=== PATIENT | female | born 1990 | race African-American/Black ===

== ENCOUNTER 2019-01-01 04:44 | Emergency (ER) | payer OTHER ==
[~2019-01-01] VITALS: Wt 78.5 kg
[2019-01-01 05:00] VITALS: BP 131/85; PULSE 91; RESP 16
--- NOTE | 2019-01-01 05:15 | ERD ---
ER Documentation Chief Complaint Chief Complaint vaginal pressure like pain x 2 days HPI This is a 28-year-old female who presents emergency department with complaints of vaginal pain 2 days. Sexually active with one partner only. Partner has no symptoms. Last sexual activity was 2 days ago. No dyspareunia. LMP: 4 years ago. Has a partial hysterectomy. Denies headache, head injury, loss of consciousness, dizziness, neck pain, neck stiffness, throat pain, difficulty swallowing, difficulty breathing lying flat, shoulder pain, chest pain, back pain, abdominal pain, nausea, vomiting, constipation, diarrhea, or possibility being , loss of bowel and bladder control, trauma, injury, falls, difficulty walking due to pain, numbness or tingling sensation, calf pain, recent travel, recent major surgery i n the last 3 weeks, calf pain, recent long travel, recent exposure to any illness, recent antibiotic use in the last 3 months, fever, chills, seizures. Past medical history: Surgical history: Partial hysterectomy. x2. Left ovary cyst. Social: Denies smoking, use of alcoholic beverages, use of illegal drugs. ROS All systems reviewed and are negative except as per history of present illness. Medications Home Meds Active Scripts Phenazopyridine Hcl* (Pyridium*) 200 Mg Tab, 200 MG PO TID PRN for URINARY PAIN, #6 TAB Prov:PASILABAN,KLAR F 01/01/19 Ibuprofen* (Motrin*) 800 Mg Tab, 800 MG PO Q6H PRN for PAIN AND OR ELEVATED TEMP, #30 TAB Prov:PASILABAN,KLAR F 01/01/19 Cephalexin* (Keflex*) 500 Mg Capsule, 500 MG PO TID for 7 Days, CAP Prov:PASILABAN,KLAR F 01/01/19 Allergies Allergies: Coded Allergies: No Known Drug Allergies (Verified Allergy, Unknown, 02/01/15) PMhx/Soc Medical and Surgical Hx: pt denies Medical Hx History of Surgery: Yes (foot surgery, hysterectomy and cyst remove from ovary ) Anesthesia Reaction: No Hx Miscellaneous Medical Probl: Yes (LT OVARY CYST ) Hx Alcohol Use: No Hx Substance Use: Yes (marijuana ) Hx Tobacco Use: No Smoking Status: Never smoker Physical Exam Vitals Vital Signs Date Temp Pulse Resp B/P (MAP) Pulse Ox O2 O2 Flow FiO2 Time Delivery Rate 01/01/19 97.6 91 16 131/85 98 05:00 (100) Physical Exam Const: No acute distress Head: Atraumatic Eyes: Normal Conjunctiva ENT: Normal External Ears, Nose and Mouth. Neck: Full range of motion. No meningismus. Resp: Clear to auscultation bilaterally Cardio: Regular rate and rhythm, no murmurs Abd: Soft, non tender, non distended. Normal bowel sounds. Negative Doe sign. Negative [place] sign (heel jar). Negative psoas sign. Negative Rovsing sign. No CVA tenderness. Ambulatory with steady gait and without pain to lower abdomen. Skin: No petechiae or rashes. Color appears normal for ethnicity. No skin pain. No signs of severe dehydration. Back: No midline or flank tenderness. Ext: No cyanosis, or edema Neur: Awake and alert. No neurological deficits. Psych: Normal Mood and Affect Results 24 hrs Laboratory Tests Test 01/01/19 05:20 01/01/19 05:21 01/01/19 05:25 Urine Color YELLOW Urine Clarity CLOUDY Urine pH 5.0 Urine Specific [place] 1.013 Urine Ketones NEGATIVE mg/dL Urine Nitrite POSITIVE mg/dL Urine Bilirubin NEGATIVE mg/dL Urine Urobilinogen NEGATIVE mg/dL Urine Leukocyte Esterase 3+ Mt/ul Urine Microscopic RBC > 182 /HPF Urine Microscopic WBC > 182 /HPF Urine Squamous Epithelial Cells FEW /HPF Urine Bacteria FEW /HPF Urine Hemoglobin 3+ mg/dL Urine Glucose NEGATIVE mg/dL Urine Total Protein 2+ mg/dl Bedside Urine pH (LAB) 5.5 Bedside Urine Protein (LAB) 2+ Bedside Urine Glucose (UA) Negative Bedside Urine Ketones (LAB) Negative Bedside Urine Blood 3+ Bedside Urine Nitrite (LAB) Positive Bedside Urine Leukocyte Esterase 1+ (L POC Beta HCG, Qualitative NEGATIVE Current Medications Medications Dose Sig/Socrates Start Time Status Last (Trade) Ordered Route PRN Stop Time Admin Dose Reason Admin 1 tab ONCE ONCE 01/01/19 DC 01/01/19 Acetaminophen PO 07:00 06:49 / 01/01/19 07:01 Hydrocodone Bitart ([place] (10)) Procedures/MDM Diagnostic tests: Urine : Negative. Urinalysis: UTI. Culture urine: Sent. Gonorrhea and Chlamydia: Sent. Pelvic ultrasound: Normal appearance of both ovaries. Trace pelvic free fluid. Chronic findings related to partial hysterectomy. Pelvic exam: Patient refused. Treatment: [place] p.o. Re-evaluation: Denies abdominal pain, pelvic pain, vaginal pain. No episode of emesis here in the emergency department. Negative Doe sign. Negative [place] sign (heel jar test). Negative psoas sign. Negative Rovsing sign. No CVA tenderness. Able to jump 5 times without developing lower abdominal pain. Differential diagnosis I have low suspicion for sepsis, pancreatitis, cholecystitis, diverticulitis, diverticulitis with abscess, appendicitis, nephrolithiasis, pyelonephritis, obstructing kidney stone, septic stone, ovarian torsion, ovarian cyst rupture, ectopic , deep space infection. Final diagnosis: UTI. Prescription: Keflex. Motrin. Pyridium. Follow-up with PCP in the next 24-48 hours. Follow-up with grinding wheel inspector in the next 24-48 hours. Come back here in the emergency department for any new symptoms or any worsening symptoms. All questions and concerns were answered. Patient and family members verbalized understanding and agreed with plan of care. Hemodynamically stable on discharge. Departure Diagnosis: Primary Impression: UTI (urinary tract infection) Additional Impression: Dysuria Condition: Stable Additional Instructions: Follow-up with PCP in the next 24-48 hours. Follow-up with grinding wheel inspector in the next 24-48 hours. Come back here in the emergency department for any new symptoms or any worsening symptoms. [facility] Jan 01, 2019 05:15
[2019-01-01] MEDS ORDERED: CEPH-443 PO (06:37)
[2019-01-01] MEDS ORDERED: PHEN-538 PO (06:38)
[2019-01-01] MEDS ORDERED: IBUP800T48 PO (06:38)
[2019-01-01] MEDS ORDERED: HYDROCODONE/APAP (10/325) TAB PO ONE (07:00)
== END 2019-01-01 06:51 | disposition home or self-care (01) ==
LOC: FTE 04:44
DX: N39.0 Urinary tract infection, site not specified (principal)
CPT/HCPCS: 76830; 76856; 81001; 81025; 87086; 87591; Z7502; Z7610; 81003